=== PATIENT | female | born 1985 | race Caucasian/White ===

== ENCOUNTER 2019-07-06 07:12 | Inpatient (IN) | payer OTHER ==
[~2019-07-06] VITALS: Ht 167.6 cm; Wt 52.6 kg
--- NOTE | ~2019-07-06 | CON ---
[address] [address] CONSULTATION Name: BERKLEY HICKEY Room: [place] [address] ADM IN M.R.#: [id number] Admission: 07/06/19 Attend Phys: Shravan Carpenter MD Discharge: Date of : 89 Report #: [id number] THIS REPORT FOR: //name// cc: Physician not on staff Physician not on staff ~ THIS REPORT FOR: //name// CC: ANDI Carpenter Physician staff DATE OF SERVICE: 07/06/2019 REASON FOR CONSULT: Hematemesis. HISTORY OF PRESENT ILLNESS: This is a 34-year-old female with history of alpha-1 antitrypsin deficiency and cirrhosis of liver, who has been followed at . The patient reports that she has not seen her doctor at for the past couple of years because she has been feeling well. She has not had any imaging or blood test as well. She reports that she has been diagnosed with her alpha-1 antitrypsin deficiency about 8 years ago. She denies any other significant medical problems. The patient reports that she has been sick to her stomach for the past several days. She has been vomiting, and initially, the vomitus was just the food that she ate, but yesterday and today, she had emesis that was purely bright red blood. She denies any hematochezia or melena. She has mild abdominal pain. She also reports that she has history of peptic ulcer disease, which was found per her upper endoscopy 7 years ago. She has not had any other scope since then. She denies fever, chills, nausea or vomiting. PAST MEDICAL HISTORY: Significant for: 1. History of alpha-1 antitrypsin deficiency. 2. Cirrhosis due to above. 3. Peptic ulcer disease. ALLERGIES: SIGNIFICANT TO MIRTAZAPINE. MEDICATIONS: Please refer to MAR. SOCIAL HISTORY: The patient admits to smoking tobacco daily, but denies any drug use. She may occasionally have alcoholic beverage. FAMILY HISTORY: The patient denies any family history of liver disease. PHYSICAL EXAMINATION: [place] [address] CONSULTATION Name: BERKLEY HICKEY Room: [address]#: [id number] Admission: 07/06/19 Attend Phys: Shravan Carpenter MD Discharge: Date of : 89 Report #: [id number] VITAL SIGNS: Reveals blood pressure of 125/84, respirations 16, pulse 110, temperature 98.1. LUNGS: Clear. CARDIOVASCULAR: Regular. ABDOMEN: Soft, mildly tender to palpation in the epigastric region. Bowel sounds are positive. NEUROLOGIC: The patient is alert and oriented x 3. LABORATORY DATA: Reveal sodium of 135, potassium 2.9, BUN is 4, creatinine 0.7, glucose is 115, AST is 332, ALT is 131, alkaline phosphatase is 119, total bilirubin is 3.6. Ammonia level is 48. AFP markers are pending. INR is 1.5. WBC is 2.8, hemoglobin of 11.6 and platelet of 53. IMAGING: CT of abdomen and pelvis was obtained. This was significant for evidence of liver disease with extensive diffuse hepatic abnormality and evidence of portal hypertension. There is also stranding and nodularity in the mesentery noted. Finally, there is stranding in the retroperitoneum and peripancreatic region, which may indicate mild pancreatitis. The gallbladder is somewhat distended and there is wall thickening of the colon. ASSESSMENT AND PLAN: The patient with history of cirrhosis secondary to alpha-1 antitrypsin deficiency, who presents with hematemesis. The patient also has history of peptic ulcer disease and is not taking any PPIs. She admits that she may take Tums on p.r.n. basis. There is also evidence of portal hypertension consistent with her liver disease. The patient also has hypokalemia and hyponatremia in addition to noted leukopenia. I will consider emergent endoscopy to assure that her bleeding is not due to varices. Based on finding, we will make further recommendation. I will also correct all her electrolytes. I will follow up with AFP and make further recommendation. She most probably will need an abdominal ultrasound with gradient. By: [id number] Pollard MD /jennifer
[2019-07-06 07:14] VITALS: BP 107/84
[2019-07-06 07:47] LABS: ABSOLUTE LYMPHOCYTES 0.8 thou/uL (0.8-5.3); ABSOLUTE MONOCYTES 0.4 thou/uL (0.0-1.2); ABSOLUTE NEUTROPHILS 1.6 thou/uL (1.6-8.1); EOSINOPHILS 0.7 %; HEMOGLOBIN 11.6 gm/dL (12.0-15.0); LYMPHOCYTES 27.4 %; MCH 34.6 pg (26.0-34.0); MCHC 35.2 g/dL (28.0-37.0); MCV 98.3 fL (80.0-100.0); MONOCYTES 14.8 %; MPV 9.1 fl. (7.2-11.1); NUCLEATED RBCS 0 /100WBC; POLYS 56.1 %; RBC 3.36 mil/uL (4.20-5.00); RDW-CV 13.9 % (10.5-14.5); WBC 2.8 thou/uL (4.0-11.0)
[2019-07-06 07:50] LABS: CALCIUM 7.7 mg/dL (8.5-10.1); CREATININE 0.7 mg/dL (0.6-1.3)
[2019-07-06 07:52] LABS: POTASSIUM 2.9 mmol/L (3.5-5.1)
[2019-07-06 07:54] LABS: APTT 27.9 Seconds (25.0-31.3); INR 1.5
[2019-07-06 07:55] LABS: TOTAL BILIRUBIN 3.3 mg/dL (<0.1-1.0); TOTAL PROTEIN 7.1 g/dL (6.4-8.2)
[2019-07-06 08:08] LABS: PLATELET COUNT* 53 thou/uL (150-400)
[2019-07-06 09:38] LABS: ICTOTEST (BILI CONFIRMATORY) Positive (Negative); URINE BILIRUBIN 2+ (Negative); URINE BLOOD NEGATIVE (Negative); URINE CLARITY CLEAR; URINE COLOR YELLOW; URINE GLUCOSE-RANDOM NEGATIVE (Negative); URINE KETONES NEGATIVE (Negative); URINE LEUKOCYTES-REFLEX NEGATIVE (Negative); URINE NITRITE-REFLEX NEGATIVE (Negative); URINE PROTEIN NEGATIVE (Negative); URINE UROBILINOGEN >= 8.0 E.U./dl (0.2-1.0)
[2019-07-06 10:45] VITALS: BP 118/73
[2019-07-06 10:51] VITALS: BP 125/84
[2019-07-06 11:30] LABS: TOTAL BILIRUBIN 3.6 mg/dL (<0.1-1.0)
--- NOTE | 2019-07-06 11:34 | NUR ---
PT ADMITTED TO ROOM 227 FROM ED. PT CAME IN VIA EMS WITH BLOODY EMESIS. PT IS NPO CURRENTLY FOR EGD. VSS ON RA. TELE SHOWS ST. PT HAS SOME DISCOMFORT TO UMBILICAL REGION. STILL REPORTS MILD NAUSEA. PT EDUCATED ON TREATMENTS, ACTIVITY, DIET AND PLAN OF CARE. PT HAS NO FURTHER QUESTIONS. CLWR
--- NOTE | 2019-07-06 13:57 | NUR ---
PT RECEIVED BACK FROM PACU VIA REPORT. PT IS STABLE AT THIS TIME. DROWSY BUT EASILY AROUSED. NO COMPLAINTS AT THIS TIME. VSS. CLWR.WCTM
[2019-07-06 15:40] LABS: HEMOGLOBIN 10.3 gm/dL (12.0-15.0)
[2019-07-06 16:44] VITALS: BP 118/69
[2019-07-06 20:30] VITALS: BP 114/67
[2019-07-07] VITALS (7 sets, daily range): BP systolic 89–120; BP diastolic 60–84
[2019-07-07 05:16] LABS: HEMATOCRIT 25.5 % (37.0-47.0); HEMOGLOBIN 8.9 gm/dL (12.0-15.0); MCH 34.7 pg (26.0-34.0); MCHC 34.8 g/dL (28.0-37.0); MCV 99.7 fL (80.0-100.0); MPV 9.3 fl. (7.2-11.1); RBC 2.55 mil/uL (4.20-5.00); RDW-CV 14.1 % (10.5-14.5); WBC 3.3 thou/uL (4.0-11.0)
[2019-07-07 05:21] LABS: INR 1.7; PROTIME 16.7 Seconds (9.20-11.50)
[2019-07-07 05:26] LABS: ALBUMIN 2.5 g/dL (3.4-5.0); CREATININE 0.6 mg/dL (0.6-1.3); MAGNESIUM 1.4 mg/dL (1.8-2.4); TOTAL PROTEIN 5.9 g/dL (6.4-8.2)
[2019-07-07 05:31] LABS: POTASSIUM 4.1 mmol/L (3.5-5.1)
--- NOTE | 2019-07-07 05:36 | NUR ---
VITALS STABLE, AFEBRILE. PT STILL FEELS NAUSEOUS, BUT REPORTS ITS MORE TOLERABLE WITH COMPAZINE AND REGLAN COMBINATION. NO EMESIS, NO BM. ABLE TO PUT WATER DOWN. COMPLAINS OF ABDOMINAL PAIN. OTHERWISE UNEVENTFUL NIGHT. CALL LIGHT WITHIN REACH. WILL CONTINUE MONITORING.
--- NOTE | 2019-07-07 19:41 | NUR ---
ASSUMED PT CARE AT 0730, FULL ASSESMENT DONE CHARTED. PT A/O X4,C/O N/V ABD PAIN. MEDS GIVEN PER MAY. PT UP WITH ASSIST, DOING BETTER WITH FULL LIQUIDS THIS EVENING. CALLS APPROPRIALTY FOR NEEDS.
[2019-07-08 04:30] LABS: HEMATOCRIT 26.7 % (37.0-47.0); HEMOGLOBIN 9.3 gm/dL (12.0-15.0); MCHC 34.9 g/dL (28.0-37.0); MCV 100.2 fL (80.0-100.0); MPV 9.2 fl. (7.2-11.1); RBC 2.67 mil/uL (4.20-5.00); RDW-CV 14.5 % (10.5-14.5); WBC 3.8 thou/uL (4.0-11.0)
[2019-07-08 04:36] VITALS: BP 114/73
[2019-07-08 04:48] LABS: ALBUMIN 2.4 g/dL (3.4-5.0); CALCIUM 7.4 mg/dL (8.5-10.1); CREATININE 0.6 mg/dL (0.6-1.3); MAGNESIUM 1.8 mg/dL (1.8-2.4); POTASSIUM 3.3 mmol/L (3.5-5.1); TOTAL BILIRUBIN 2.6 mg/dL (<0.1-1.0); TOTAL PROTEIN 5.6 g/dL (6.4-8.2)
--- NOTE | 2019-07-08 05:50 | NUR ---
VSS. NAUSEA INITIALLY RELIEVED BY ZOFRAN, RETURNED BEFORE ZOFRAN DUE. COMPAZINE GIVEN ALTERNATIVE WITH RELIEF OF NAUSEA. ONE EPISODE BLOOD TINGED EMESIS TONIGHT, APPROXIMATELY 60ML. INTERMITTENT COMPLAINTS OF PAIN RELIEVED BY PRN FENTANYL. PT C/O "DRY, ITCHY, SWOLLEN FEELING IN THE BACK OF MY THROAT." PT DENIED DIFFICULTY BREATHING OR SWALLOWING. PRN BENADRYL GIVEN FOR "SWOLLEN" SENSATION IN THROAT IN CASE THIS WAS A REACTION OF SOME KIND. WITHIN MINUTES OF GIVING IV BENADRYL, PT BECAME CONFUSED, STATEMENTS NOT MAKING SENSE IN CONTENT OF CONVERSATION AND APPEARING TO RESPOND TO INTERNAL STIMULI. PT SEEMED NOT TO RECALL EVENTS OF THE EVENING APPROPRIATELY, STATING HER FRIEND HAD BEEN IN THE HOSPITAL TO VISIT AND OTHER SIMILAR INACCURACIES. SHORTLY AFTER THIS RN LEFT HER ROOM, PT WALKED TO NURSES STATION STATING SHE WAS LOOKING FOR A JOB POSITION. ZORAN CAPUTO, ASSISTED PT BACK TO BED AFTER WHICH PT HAS SLEPT. CALL LIGHT WITHIN REACH.
[2019-07-08 08:00] VITALS: BP 97/68
[2019-07-08] MEDS ORDERED: INDERAL 20 MG T20 M1 PO (09:41)
[2019-07-08] MEDS ORDERED: XIFAXAN550 M1 PO (09:41)
[2019-07-08] MEDS ORDERED: OMEPRAZOLE40 MG PO (09:41)
[2019-07-08] MEDS ORDERED: CARAFATE 11 GM/10 M1 PO (09:41)
[2019-07-08 11:38] VITALS: BP 97/64
--- NOTE | 2019-07-08 13:31 | NUR ---
RX CALLED INTO TO [facility] FOR REGLAN 5 MG PO QID AND COMPAZINE [address] PER [address] GOFF
--- NOTE | 2019-07-08 14:04 | NUR ---
PT A&OX4 VSS. PT ON ROOM AIR, 97%. PT UP AD JORDAN, GAIT STEADY. IV TO RAC DC PRIOR TO LEAVING UNIT. NO REDNESS/BLEEDING NOTED AT SITE. RX FOR REGLAN AND COMPAZINE CALLED IN ORDERED BY DR GOFF. DIET ADVANCED PER DR GOFF. PT TOLERATED REGULAR DIET AT LUNCH, NO C/O NAUSEA OR VOMITING. PT DRESSED INDEPENDENTLY. PT LEFT UBIT WITH ALL PERSONAL BELONGINGS, ACCOMPANIED BY NURSING STAFF.
[2019-07-08 14:20] VITALS: BP 97/64
== END 2019-07-08 14:20 | disposition home or self-care (01) | DRG 441 ==
LOC: M.ERS 07:12 → EDBD 07:12 → M.TBA-ER 09:47 → M.2W 09:47
PROVIDERS: Family Medicine; ADMIT Internal Medicine
PROC: 0DJ08ZZ Inspection of Upper Intestinal Tract, Via Natural or Artificial Opening Endoscopic (ICD-10-PCS; principal; 2019-07-06)
DX: K76.6 Portal hypertension (principal); I85.11 Secondary esophageal varices with bleeding; E87.1 Hypo-osmolality and hyponatremia; K74.60 Unspecified cirrhosis of liver; K72.90 Hepatic failure, unspecified without coma; K21.0 Gastro-esophageal reflux disease with esophagitis; K44.9 Diaphragmatic hernia without obstruction or gangrene; F17.210 Nicotine dependence, cigarettes, uncomplicated; E87.6 Hypokalemia; K31.89 Other diseases of stomach and duodenum; R59.1 Generalized enlarged lymph nodes; D49.0 Neoplasm of unspecified behavior of digestive system; E88.01 Alpha-1-antitrypsin deficiency; Z87.11 Personal history of peptic ulcer disease; Z88.8 Allergy status to other drugs, medicaments and biological substances; Z72.89 Other problems related to lifestyle

== ENCOUNTER 2019-09-10 17:23 | Emergency (ER) | payer OTHER ==
[~2019-09-10] VITALS: Ht 167.6 cm; Wt 51.3 kg
[~2019-09-10 17:23] MED LIST: CARAFATE 11 GM/10 M1 PO; INDERAL 20 MG T20 M1 PO; OMEPRAZOLE40 MG PO; XIFAXAN550 M1 PO
[2019-09-10] MEDS ORDERED: CIPRO500 M1 PO (17:37)
[2019-09-10] MEDS ORDERED: FUROSEMIDE 40 M40 MG PO (17:39)
[2019-09-10] MEDS ORDERED: NEURONTIN 300M300 M2 PO (17:40)
[2019-09-10] MEDS ORDERED: SPIRONOLACTONE50 MG PO (17:40)
[2019-09-10] MEDS ORDERED: SERTRALINE HCL100 MG PO (17:41)
[2019-09-10] MEDS ORDERED: BUSPIRONE HCL10 MG PO (17:41)
[2019-09-10] MEDS ORDERED: CARAFATE1 GM/10 ML PO (17:42)
[2019-09-10] MEDS ORDERED: SUPER THERAVIT1 EACH PO (17:42)
[2019-09-10] MEDS ORDERED: ZUPLENZ4 MG PO (17:43)
[2019-09-10] MEDS ORDERED: TRAZODONE 150150 M1 PO (17:43)
[2019-09-10 18:08] LABS: ABSOLUTE LYMPHOCYTES 0.9 thou/uL (0.8-5.3); ABSOLUTE MONOCYTES 0.3 thou/uL (0.0-1.2); ABSOLUTE NEUTROPHILS 3.8 thou/uL (1.6-8.1); BASOPHILS 0.7 %; EOSINOPHILS 0.1 %; HEMATOCRIT 23.5 % (37.0-47.0); LYMPHOCYTES 17.8 %; MCH 28.2 pg (26.0-34.0); MCHC 33.9 g/dL (28.0-37.0); MCV 83.1 fL (80.0-100.0); MONOCYTES 6.2 %; MPV 7.8 fl. (7.2-11.1); NUCLEATED RBCS 0 /100WBC; PLATELET COUNT* 108 thou/uL (150-400); POLYS 75.2 %; RBC 2.83 mil/uL (4.20-5.00); RDW-CV 18.4 % (10.5-14.5); WBC 5.1 thou/uL (4.0-11.0)
[2019-09-10 18:21] LABS: CALCIUM 7.7 mg/dL (8.5-10.1); CREATININE 0.6 mg/dL (0.6-1.3)
[2019-09-10 18:25] LABS: ALBUMIN 2.3 g/dL (3.4-5.0); TOTAL BILIRUBIN 2.3 mg/dL (<0.1-1.0); TOTAL PROTEIN 6.9 g/dL (6.4-8.2)
[2019-09-10 20:15] LABS: APTT 27.3 Seconds (25.0-31.3); INR 1.6; PROTIME 15.9 Seconds (9.20-11.50)
[2019-09-10 21:06] VITALS: BP 102/68
[2019-09-10 21:16] LABS: HEMATOCRIT 20.3 % (37.0-47.0)
[2019-09-10 21:19] LABS: HEMOGLOBIN 6.6 gm/dL (12.0-15.0)
--- NOTE | 2019-09-11 09:08 | EKG ---
[place] [address] ELECTROCARDIOGRAM REPORT Name: BERKLEY HICKEY Room: [facility]#: [id number] Admission: 09/10/19 Attend Phys: Discharge: 09/10/19 Date of : 89 Date of Service: 09/10/19 180 Report #: [id number] THIS REPORT FOR: //name// [facility] ED Test Date: 2019-09-10 Test Time: 18:05:34 Pat Name: BERKLEY HICKEY Department: Room: Gender: Process Supervisor: [facility] : 1985 Requested By: Swathi Styles Order Number: [id number] MD: Alessandro Smith Measurements Intervals [place] Rate: 98 P: 76 [place]: 124 QRS: 66 QRSD: 77 T: 38 QT: 383 QTc: 490 Interpretive Statements Sinus rhythm Prolonged QT interval No previous ECG available for comparison Electronically Signed On 09-11-2019 9:08:09 CDT by Alessandro Smith [email or web address] <ELECTRONICALLY SIGNED> By: Alessandro Smith MD, [facility] 09/11/19907 04 04 Alessandro Smith MD, FACC /EPI
== END 2019-09-10 21:15 | disposition short-term general hospital (02) ==
LOC: M.ERS 17:23
PROVIDERS: Nurse Practitioner Family; Personal Emergency Response Attendant
DX: K92.2 Gastrointestinal hemorrhage, unspecified (principal); K74.60 Unspecified cirrhosis of liver; I85.01 Esophageal varices with bleeding; F10.10 Alcohol abuse, uncomplicated; Y90.0 Blood alcohol level of less than 20 mg/100 ml; R11.2 Nausea with vomiting, unspecified; Z88.8 Allergy status to other drugs, medicaments and biological substances

== ENCOUNTER 2019-09-27 11:53 | Emergency (ER) | payer OTHER ==
[~2019-09-27] VITALS: Ht 167.6 cm; Wt 54.4 kg
[~2019-09-27 11:53] MED LIST changes: +BUSPIRONE HCL10 MG PO; +CARAFATE1 GM/10 ML PO; +CIPRO500 M1 PO; +FUROSEMIDE 40 M40 MG PO; +NEURONTIN 300M300 M2 PO; +SERTRALINE HCL100 MG PO; +SPIRONOLACTONE50 MG PO; +SUPER THERAVIT1 EACH PO; +TRAZODONE 150150 M1 PO; +ZUPLENZ4 MG PO
[2019-09-27] MEDS ORDERED: PROTONIX40 M2 PO (12:06)
[2019-09-27] MEDS ORDERED: GI COCKTAIL (12:06)
[2019-09-27 12:23] LABS: ABSOLUTE LYMPHOCYTES 1.6 thou/uL (0.8-5.3); ABSOLUTE MONOCYTES 0.4 thou/uL (0.0-1.2); ABSOLUTE NEUTROPHILS 3.4 thou/uL (1.6-8.1); BASOPHILS 0.7 %; EOSINOPHILS 0.6 %; HEMATOCRIT 33.3 % (37.0-47.0); LYMPHOCYTES 28.9 %; MCH 28.2 pg (26.0-34.0); MCV 85.5 fL (80.0-100.0); MONOCYTES 8.1 %; MPV 8.4 fl. (7.2-11.1); NUCLEATED RBCS 0 /100WBC; PLATELET COUNT* 132 thou/uL (150-400); POLYS 61.7 %; RBC 3.89 mil/uL (4.20-5.00); RDW-CV 19.6 % (10.5-14.5); WBC 5.5 thou/uL (4.0-11.0)
[2019-09-27 12:36] LABS: CREATININE 0.8 mg/dL (0.6-1.3); POTASSIUM 3.2 mmol/L (3.5-5.1)
[2019-09-27 12:37] LABS: PHOSPHORUS* 3.3 mg/dL (2.5-4.9)
[2019-09-27 12:38] LABS: AMMONIA < 10 umol/L (11-32)
[2019-09-27 12:43] LABS: ALBUMIN 2.6 g/dL (3.4-5.0); MAGNESIUM 1.2 mg/dL (1.8-2.4); TOTAL BILIRUBIN 2.5 mg/dL (<0.1-1.0); TOTAL PROTEIN 7.6 g/dL (6.4-8.2)
[2019-09-27 15:10] LABS: APTT 26.6 Seconds (25.0-31.3); INR 1.3; PROTIME 13.5 Seconds (9.20-11.50)
[2019-09-27] MEDS ORDERED: GI Cocktail PO (17:23)
[2019-09-27] MEDS ORDERED: PROMS25 WY RECTAL (17:23)
[2019-09-27] MEDS ORDERED: PHENERGAN 25 MG25 M1 PO (17:23)
[2019-09-27 17:56] VITALS: BP 103/79
== END 2019-09-27 17:56 | disposition home or self-care (01) ==
LOC: M.ERS 11:53
PROVIDERS: Personal Emergency Response Attendant
DX: K74.60 Unspecified cirrhosis of liver (principal); R11.2 Nausea with vomiting, unspecified; R10.84 Generalized abdominal pain; K21.9 Gastro-esophageal reflux disease without esophagitis; Z20.828 Contact with and (suspected) exposure to other viral communicable diseases; Z88.8 Allergy status to other drugs, medicaments and biological substances

== ENCOUNTER 2019-10-31 18:25 | Emergency (ER) | payer OTHER ==
[~2019-10-31] VITALS: Ht 167.6 cm; Wt 49.9 kg
[~2019-10-31 18:25] MED LIST changes: +GI COCKTAIL; +GI Cocktail PO; +PHENERGAN 25 MG25 M1 PO; +PROMS25 WY RECTAL; +PROTONIX40 M2 PO
[2019-10-31 19:00] LABS: ABSOLUTE BASOPHILS 0.1 thou/uL (0.0-0.2); ABSOLUTE LYMPHOCYTES 3.9 thou/uL (0.8-5.3); ABSOLUTE MONOCYTES 0.5 thou/uL (0.0-1.2); ABSOLUTE NEUTROPHILS 4.3 thou/uL (1.6-8.1); BASOPHILS 1.4 %; EOSINOPHILS 0.1 %; HEMATOCRIT 32.8 % (37.0-47.0); HEMOGLOBIN 10.9 gm/dL (12.0-15.0); LYMPHOCYTES 44.2 %; MCH 27.4 pg (26.0-34.0); MCHC 33.2 g/dL (28.0-37.0); MCV 82.6 fL (80.0-100.0); MONOCYTES 5.8 %; MPV 7.8 fl. (7.2-11.1); NUCLEATED RBCS 0 /100WBC; PLATELET COUNT* 198 thou/uL (150-400); POLYS 48.5 %; RBC 3.97 mil/uL (4.20-5.00); RDW-CV 16.9 % (10.5-14.5); WBC 8.8 thou/uL (4.0-11.0)
[2019-10-31 19:09] LABS: CALCIUM 7.8 mg/dL (8.5-10.1); CREATININE 0.7 mg/dL (0.6-1.3); POTASSIUM 3.1 mmol/L (3.5-5.1)
[2019-10-31 19:13] LABS: ALBUMIN 2.9 g/dL (3.4-5.0); TOTAL BILIRUBIN 1.5 mg/dL (<0.1-1.0); TOTAL PROTEIN 7.8 g/dL (6.4-8.2)
[2019-10-31 19:40] LABS: URINE BILIRUBIN NEGATIVE (Negative); URINE BLOOD NEGATIVE (Negative); URINE CLARITY CLEAR; URINE COLOR YELLOW; URINE GLUCOSE-RANDOM NEGATIVE (Negative); URINE KETONES NEGATIVE (Negative); URINE LEUKOCYTES-REFLEX NEGATIVE (Negative); URINE NITRITE-REFLEX NEGATIVE (Negative); URINE PROTEIN NEGATIVE (Negative)
[2019-10-31 20:23] VITALS: BP 102/70
== END 2019-10-31 20:39 | disposition left against medical advice (07) ==
LOC: M.ERS 18:25
PROVIDERS: Physician Assistant
DX: E87.1 Hypo-osmolality and hyponatremia (principal); K21.9 Gastro-esophageal reflux disease without esophagitis; Z88.8 Allergy status to other drugs, medicaments and biological substances

== ENCOUNTER 2019-11-06 20:34 | Emergency (ER) | payer OTHER ==
[~2019-11-06] VITALS: Ht 167.6 cm; Wt 49.9 kg
[2019-11-06 20:40] VITALS: BP 109/77
--- NOTE | 2019-11-07 16:42 | EKG ---
[place] [address] ELECTROCARDIOGRAM REPORT Name: BERKLEY HICKEY Room: [facility]#: [id number] Admission: 11/06/19 Attend Phys: Discharge: 11/06/19 Date of : 89 Date of Service: 11/06/192046 Report #: [id number] THIS REPORT FOR: //name// [facility] ED Test Date: 2019-11-06 Test Time: 20:47:16 Pat Name: BERKLEY HICKEY Department: Room: Gender: [employer]: [place] : 1985 Requested By: Kirsten Phelan Order Number: [id number] Reading MD: Kee Harris Measurements Intervals [place] Rate: 129 P: 61 [place]: 126 QRS: 64 QRSD: 73 T: 257 QT: 304 QTc: 446 Interpretive Statements Sinus tachycardia Probable left atrial enlargement Low voltage, precordial leads Nonspecific repol abnormality, diffuse leads Baseline wander in lead(s) V4 Compared to ECG 09/10/2019 18:05:34 Low QRS voltage now present Sinus rhythm no longer present Prolonged QT interval no longer present Electronically Signed On 11-07-2019 16:42:52 CDT by Kee Harris [email or web address] <ELECTRONICALLY SIGNED> By: Kee Harris MD, [facility] 11/07/19 1642 46 46 Kee Harris MD, [facility] /EPI
== END 2019-11-06 20:53 | disposition left against medical advice (07) ==
LOC: M.ERS 20:34
DX: Z53.21 Procedure and treatment not carried out due to patient leaving prior to being seen by health care provider (principal)